=== PATIENT | female | born 1935 | race Two or more races ===

== ENCOUNTER 2018-02-02 08:43 | Emergency (ER) | payer OTHER ==
[~2018-02-02] VITALS: Ht 162.6 cm; Wt 72.6 kg
[2018-02-02 08:52] VITALS: BP 131/87; Ht 162.6 cm; Wt 72.6 kg
== END 2018-02-02 09:35 | disposition home or self-care (01) ==
LOC: ED 08:43
DX: S61.250A Open bite of right index finger without damage to nail, initial encounter (principal); I10 Essential (primary) hypertension; E11.9 Type 2 diabetes mellitus without complications; E78.00 Pure hypercholesterolemia, unspecified; W55.01XA Bitten by cat, initial encounter; Y93.89 Activity, other specified; Y92.89 Other specified places as the place of occurrence of the external cause; Y99.8 Other external cause status
CPT/HCPCS: 90715